=== PATIENT | male | born 1995 | race Caucasian/White ===

== ENCOUNTER 2016-12-26 00:33 | Emergency (ER) | payer OTHER ==
[2016-12-26] MEDS ORDERED: RX INFO: IV CONTRAST WAS GIVEN 1 EACH MISC MISCELLANE PRN (01:12)
[2016-12-26 01:41] LABS: Appearance,Urine Clear (Clear); Bilirubin,Urine Negative (Negative); Glucose,Urine (UA) Negative (Negative); Ketones,Urine Negative (Negative); Leukocyte Esterase,Urine Negative (Negative); Nitrite,Urine Negative (Negative); PH, Urine 6.5 (5.0-8.0); Protein,Urine Negative (Negative); Specific Gravity,Urine 1.029 (1.001-1.035); UA Billing (MACRO vs. MICRO) CHEM; Urobilinogen,Urine <2.0 mg/dL (<2.0)
[2016-12-26 01:43] LABS: ALT 129 U/L (21-72); AST 128 U/L (17-59); Alkaline Phosphatase 82 U/L (38-126); Amylase 61 U/L (30-110); Anion Gap 12 mmol/L; Blood Urea Nitrogen 19 mg/dL (9-20); Calcium 10.1 mg/dL (8.4-10.2); Carbon Dioxide 23 mmol/L (22-30); Chloride 106 mmol/L (98-107); Glucose 87 mg/dL (74-99); Non-African American GFR(MDRD) >60 (>60 ml/min/1.73 sqM); Potassium 4.2 mmol/L (3.5-5.1); Sodium 141 mmol/L (137-145); Total Bilirubin 0.5 mg/dL (0.2-1.3)
[2016-12-26 01:49] LABS: Basophils % (A) 0 %; CH 31.9; CHCM 35.1; Eosinophils # (A) 0.2 k/uL (0-0.7); Eosinophils % (A) 3 %; HCT 43.8 % (39.0-53.0); HDW 2.86; HGB 14.8 gm/dL (13.0-17.5); Luc # (Auto) 0.13; Luc % (Auto) 2; Lymphocytes # (A) 3.1 k/uL (1.0-4.8); Lymphocytes % (A) 40 %; MCH 30.8 pg (25.0-35.0); MCHC 33.7 g/dL (31.0-37.0); MCV 91.5 fL (80.0-100.0); Mean Platelet Volume 7.2; Monocytes # (A) 0.4 k/uL (0-1.0); Monocytes % (A) 5 %; Neutrophils # (A) 3.9 k/uL (1.3-7.7); Neutrophils % (A) 50 %; RBC 4.79 m/uL (4.30-5.90); RDW 12.9 % (11.5-15.5); WBC 7.9 k/uL (3.8-10.6); WBC (Perox) 7.56
--- NOTE | 2016-12-26 01:54 | ED ---
General Adult HPI - General Chief complaint: Abdominal Pain Stated complaint: RUQ Pain Time Seen by Provider: 12/26/16 00:40 Source: patient, RN notes reviewed Mode of arrival: ambulatory Limitations: no limitations - History of Present Illness Initial comments: This is a 21-year-old male who presents emergency Department complaining that about 5 hours ago he started having some diarrhea and some nausea. Patient denies any vomiting. Patient states about 3 hours after that he noticed some bruising on his left flank. Patient states that areas also a little bit tender. She also feels as though his whole abdomen is more distended than normal. Patient denies any bleeding disorders per patient denies any trauma to that side of his abdomen. Patient denies any fever or chills. He denies any chest pain difficult breathing or shortness of breath. Patient denies any dysuria hematuria urinary frequency. Patient denies any back pain. - Related Data Home Medications Medication Instructions Recorded Confirmed No Known Home Medications [No 12/26/16 12/26/16 Known Home Medications] Allergies Allergy/AdvReac Type Severity Reaction Status Date / Time No Known Allergies Allergy Verified 12/26/16 00:43 Review of Systems ROS Statement: Those systems with pertinent positive or pertinent negative responses have been documented in the HPI. ROS Other: All systems not noted in ROS Statement are negative. Past Medical History Past Medical History: No Reported History History of Any Multi-Drug Resistant Organisms: None Reported Past Surgical History: Adenoidectomy, Tonsillectomy Past Psychological History: No Psychological Hx Reported Smoking Status: Never smoker Past Alcohol Use History: Occasional Past Drug Use History: None Reported General Exam - General Exam Comments Initial Comments: GENERAL: Patient is well-developed and well-nourished. Patient is nontoxic and well- hydrated and is in mild distress. ENT: Neck is soft and supple. No significant lymphadenopathy is noted. Oropharynx is clear. Moist mucous membranes. Neck has full range of motion without eliciting any pain. EYES: The sclera were anicteric and conjunctiva were pink and moist. Extraocular movements were intact and pupils were equal round and reactive to light. Eyelids were unremarkable. PULMONARY: Unlabored respirations. Good breath sounds bilaterally. No audible rales rhonchi or wheezing was noted. CARDIOVASCULAR: There is a regular rate and rhythm without any murmurs gallops or rubs. ABDOMEN: Patient has minimal tenderness on the right flank and there is some slight area of ecchymosis. SKIN: Skin is clear with no lesions or rashes and otherwise unremarkable. NEUROLOGIC: Patient is alert and oriented x3. Cranial nerves II through XII are grossly intact. Motor and sensory are also intact. Normal speech, volume and content. Symmetrical smile. MUSCULOSKELETAL: Normal extremities with adequate strength and full range of motion. No lower extremity swelling or edema. No calf tenderness. LYMPHATICS: No significant lymphadenopathy is noted PSYCHIATRIC: Normal psychiatric evaluation. Normal interpersonal interactions appears functionally intact in deals appropriately with others. No signs of depression. No signs of anxiety. Limitations: no limitations Course Vital Signs 12/26/16 12/26/16 00:39 02:14 Temperature 99.1 F 98.1 F Pulse Rate 73 71 Respiratory 16 18 Rate Blood Pressure 151/80 137/60 O2 Sat by Pulse 98 100 Oximetry Medical Decision Making - Medical Decision Making CT of the abdomen and pelvis shows moderate subcutaneous edema of the lower ventral abdominal wall some skin thickening. - Lab Data Result diagrams: 12/26/16 00:50 12/26/16 00:50 Lab Results 12/26/16 12/26/16 12/26/16 Range/Units 00:50 00:50 00:50 WBC 7.9 (3.8-10.6) k/uL RBC 4.79 (4.30-5.90) m/uL Hgb 14.8 (13.0-17.5) gm/dL Hct 43.8 (39.0-53.0) % MCV 91.5 (80.0-100.0) fL MCH 30.8 (25.0-35.0) pg MCHC 33.7 (31.0-37.0) g/dL RDW 12.9 (11.5-15.5) % Plt Count 220 (150-450) k/uL Neutrophils % 50 % Lymphocytes % 40 % Monocytes % 5 % Eosinophils % 3 % Basophils % 0 % Neutrophils # 3.9 (1.3-7.7) k/uL Lymphocytes # 3.1 (1.0-4.8) k/uL Monocytes # 0.4 (0-1.0) k/uL Eosinophils # 0.2 (0-0.7) k/uL Basophils # 0.0 (0-0.2) k/uL PT 10.6 (9.0-12.0) sec INR 1.1 (<1.1) APTT 24.3 (22.0-30.0) sec Sodium 141 (137-145) mmol/L Potassium 4.2 (3.5-5.1) mmol/L Chloride 106 (98-107) mmol/L Carbon Dioxide 23 (22-30) mmol/L Anion Gap 12 mmol/L BUN 19 (9-20) mg/dL Creatinine 0.80 (0.66-1.25) mg/dL Est GFR (MDRD) Af Amer >60 (>60 ml/min/1.73 sqM) Est GFR (MDRD) Non-Af >60 (>60 ml/min/1.73 sqM) Glucose 87 (74-99) mg/dL Calcium 10.1 (8.4-10.2) mg/dL Total Bilirubin 0.5 (0.2-1.3) mg/dL AST 128 H (17-59) U/L ALT 129 H (21-72) U/L Alkaline Phosphatase 82 (38-126) U/L Total Protein 7.0 (6.3-8.2) g/dL Albumin 4.4 (3.5-5.0) g/dL Amylase 61 (30-110) U/L Lipase 65 (23-300) U/L Urine Color Urine Appearance (Clear) Urine pH (5.0-8.0) Ur Specific [place] (1.001-1.035) Urine Protein (Negative) Urine Glucose (UA) (Negative) Urine Ketones (Negative) Urine Blood (Negative) Urine Nitrite (Negative) Urine Bilirubin (Negative) Urine Urobilinogen (<2.0) mg/dL Ur Leukocyte Esterase (Negative) 12/26/16 Range/Units 01:20 WBC (3.8-10.6) k/uL RBC (4.30-5.90) m/uL Hgb (13.0-17.5) gm/dL Hct (39.0-53.0) % MCV (80.0-100.0) fL MCH (25.0-35.0) pg MCHC (31.0-37.0) g/dL RDW (11.5-15.5) % Plt Count (150-450) k/uL Neutrophils % % Lymphocytes % % Monocytes % % Eosinophils % % Basophils % % Neutrophils # (1.3-7.7) k/uL Lymphocytes # (1.0-4.8) k/uL Monocytes # (0-1.0) k/uL Eosinophils # (0-0.7) k/uL Basophils # (0-0.2) k/uL PT (9.0-12.0) sec INR (<1.1) APTT (22.0-30.0) sec Sodium (137-145) mmol/L Potassium (3.5-5.1) mmol/L Chloride (98-107) mmol/L Carbon Dioxide (22-30) mmol/L Anion Gap mmol/L BUN (9-20) mg/dL Creatinine (0.66-1.25) mg/dL Est GFR (MDRD) Af Amer (>60 ml/min/1.73 sqM) Est GFR (MDRD) Non-Af (>60 ml/min/1.73 sqM) Glucose (74-99) mg/dL Calcium (8.4-10.2) mg/dL Total Bilirubin (0.2-1.3) mg/dL AST (17-59) U/L ALT (21-72) U/L Alkaline Phosphatase (38-126) U/L Total Protein (6.3-8.2) g/dL Albumin (3.5-5.0) g/dL Amylase (30-110) U/L Lipase (23-300) U/L Urine Color Light Yellow Urine Appearance Clear (Clear) Urine pH 6.5 (5.0-8.0) Ur Specific [place] 1.029 (1.001-1.035) Urine Protein Negative (Negative) Urine Glucose (UA) Negative (Negative) Urine Ketones Negative (Negative) Urine Blood Negative (Negative) Urine Nitrite Negative (Negative) Urine Bilirubin Negative (Negative) Urine Urobilinogen <2.0 (<2.0) mg/dL Ur Leukocyte Esterase Negative (Negative) Disposition Clinical Impression: Edema of abdominal wall Disposition: HOME SELF-CARE Condition: Good Instructions: Abdominal Pain (ED) Referrals: None,Stated [Primary Care Provider] - 1-2 days Time of Disposition: 03:08
--- NOTE | 2016-12-26 02:02 | CT ---
EXAM: CT Abdomen and Pelvis With Intravenous Contrast CLINICAL HISTORY: Reason: abdominal pain TECHNIQUE: Axial computed tomography images of the abdomen and pelvis with intravenous contrast. CTDI is 22 mGy and DLP is 1162 mGy-cm; CTDI is 22 mGy and DLP is 640 mGy-cm. This CT exam was performed using one or more of the following dose reduction techniques: automated exposure control, adjustment of the mA and/or kV according to patient size, and/or use of iterative reconstruction technique. COMPARISON: No relevant prior studies available. FINDINGS: Lower thorax: No acute findings. ABDOMEN: Liver: Minimal focal fatty change in the liver near the falciform ligament. Subcentimeter hypoattenuating foci in the liver, too small to characterize. Gallbladder and bile ducts: Grossly unremarkable decompressed gallbladder. Pancreas: Unremarkable. No mass. No ductal dilation. Spleen: Borderline splenomegaly measuring 13.5 cm AP. Accessory splenule. Adrenals: Unremarkable. No mass. Kidneys and ureters: Unremarkable. No solid mass. No hydronephrosis. Stomach and bowel: Unremarkable. No obstruction. No mucosal thickening. Appendix: No findings to suggest acute appendicitis. PELVIS: Bladder: Unremarkable. No mass. Reproductive: Unremarkable as visualized. ABDOMEN and PELVIS: Intraperitoneal space: Unremarkable. No free air. No significant fluid collection. Bones/joints: No acute fracture. No dislocation. Soft tissues: Moderate subcutaneous edema of the lower ventral abdominal wall with some skin thickening; query cellulitis. No fluid collection to suggest abscess. 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 Lymph nodes: Prominent mesenteric lymph nodes, nonspecific and may be reactive. IMPRESSION: 1. Moderate subcutaneous edema of the lower ventral abdominal wall with some skin thickening; query cellulitis. No fluid collection to suggest abscess. 2. 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 3. Borderline splenomegaly measuring 13.5 cm AP. 4. Prominent mesenteric lymph nodes, nonspecific and may be reactive.
[2016-12-26 02:15] VITALS: RESP 18; TEMP 98.1
[2016-12-26 02:26] LABS: INR 1.1 (<1.1); Partial Thromboplastin Time 24.3 sec (22.0-30.0); Prothrombin Time 10.6 sec (9.0-12.0)
[2016-12-26 03:22] VITALS: BP 120/59; PULSE 72
== END 2016-12-26 03:21 | disposition home or self-care (01) ==
LOC: EC 00:33
DX: R60.0 Localized edema (principal); R10.11 Right upper quadrant pain; R19.7 Diarrhea, unspecified; R11.0 Nausea
CPT/HCPCS: 36415; 80053; 82150; 83690; 85025; 85610; 85730; 81003; 74177; 99284; Q9967

== ENCOUNTER 2017-01-14 03:26 | Emergency (ER) | payer OTHER ==
[2017-01-14 03:32] VITALS: BP 109/60; PULSE 74; RESP 24; TEMP 97.6
[2017-01-14] MEDS ORDERED: KETOROLAC 60 MG/2 ML VIAL IM STA (03:36)
--- NOTE | 2017-01-14 03:56 | ED ---
General Adult HPI - General Chief complaint: Extremity Injury, Upper Stated complaint: Elbow injury Time Seen by Provider: 01/14/17 03:30 Source: patient, RN notes reviewed Mode of arrival: ambulatory Limitations: no limitations - History of Present Illness Initial comments: Is a 21-year-old male presents emergency Department complaining of right elbow pain. Patient states he was drinking slipped and fell and was elbow. Patient denies any wrist or hand pain. Patient denies any shoulder pain. Patient denies any chest pain. Patient denies any other injury. Patient denies hitting his head or injuring his neck. Patient denies any numbness weakness. - Related Data Home Medications Medication Instructions Recorded Confirmed No Known Home Medications [No 12/26/16 01/14/17 Known Home Medications] Allergies Allergy/AdvReac Type Severity Reaction Status Date / Time No Known Allergies Allergy Verified 01/14/17 03:32 Review of Systems ROS Statement: Those systems with pertinent positive or pertinent negative responses have been documented in the HPI. ROS Other: All systems not noted in ROS Statement are negative. Past Medical History Past Medical History: No Reported History History of Any Multi-Drug Resistant Organisms: None Reported Past Surgical History: Adenoidectomy, Tonsillectomy Past Psychological History: No Psychological Hx Reported Smoking Status: Never smoker Past Alcohol Use History: Occasional Past Drug Use History: None Reported General Exam - General Exam Comments Initial Comments: GENERAL Patient is well-developed and well-nourished. Patient is in mild distress. EYES Patient's pupils are equal and round. Extraocular motion is intact SKIN Unremarkable NEURO The patient is alert and oriented 3 PYSCH Patient has normal interpersonal interactions. MUSCULOSKELETAL Patient is medial elbow tenderness and tenderness with movement of the elbow Limitations: no limitations Course Vital Signs 01/14/17 03:30 Temperature 97.6 F Pulse Rate 74 Respiratory 24 Rate Blood Pressure 109/60 O2 Sat by Pulse 98 Oximetry Medical Decision Making - Medical Decision Making X-ray of the humerus and elbow showed no acute abnormality Disposition Clinical Impression: Contusion, elbow Disposition: HOME SELF-CARE Condition: Good Instructions: Contusion in Adults (ED) Referrals: None,Stated [Primary Care Provider] - 1-2 days Time of Disposition: 04:06
--- NOTE | 2017-01-14 04:27 | XR ---
EXAM: XR Right Humerus, 2 or More Views CLINICAL HISTORY: Reason: Pain TECHNIQUE: Frontal and lateral views of the right humerus. COMPARISON: No relevant prior studies available. FINDINGS: Bones/joints: Unremarkable. No acute fracture. No dislocation. Soft tissues: Unremarkable. IMPRESSION: Unremarkable right humerus x-rays.
--- NOTE | 2017-01-14 04:28 | XR ---
EXAM: XR Right Elbow Complete, 2 Views CLINICAL HISTORY: Reason: Pain TECHNIQUE: Frontal and lateral views of the right elbow. COMPARISON: No relevant prior studies available. FINDINGS: Bones/joints: Unremarkable. No acute fracture. No dislocation. Soft tissues: Unremarkable. IMPRESSION: Unremarkable right elbow x-rays.
== END 2017-01-14 04:17 | disposition home or self-care (01) ==
LOC: EC 03:26
DX: S50.01XA Contusion of right elbow, initial encounter (principal); W01.0XXA Fall on same level from slipping, tripping and stumbling without subsequent striking against object, initial encounter
CPT/HCPCS: 99283; 96372; 73060; 73070; J1885